=== PATIENT | male | born 1945 | race Caucasian/White ===

== ENCOUNTER 2020-01-13 00:56 | Emergency (ER) | payer MEDICARE, OTHER ==
--- NOTE | 2020-01-13 03:15 | EDM.PDOC ---
ED HPI GENERAL MEDICAL PROBLEM - General Chief Complaint: General Stated Complaint: rectal pain/constipation Time Seen by Provider: 01/13/20 01:16 Source of Information: Reports: Patient History Limitations: Reports: No Limitations - History of Present Illness INITIAL COMMENTS - FREE TEXT/NARRATIVE: Pt. presents to ER with complaints of constipation. Pt. states that he has been having trouble having a BM for the past several days. He states that he is having a lot of rectal pain and has been attempting to disimpact himself. He states that is stool is extremely hard. Pt. denies any history of severe constipation in the past. Denies any abdominal pain. He states that he is passing gas. Pt. states that he contact ask a nurse who advised him to come immediately to ER over concerns of bowel obstruction. Onset Date: 01/13/20 Location: Reports: Abdomen Quality: Reports: Pressure Rectal Pain Score (Numeric/FACES): 8 - Related Data Allergies Allergy/AdvReac Type Severity Reaction Status Date / Time codeine Allergy Shortness Verified 01/13/20 00:59 of Breath Penicillins Allergy Rash Verified 01/13/20 00:59 flour Allergy Shortness Uncoded 01/13/20 00:59 of Breath grass Allergy sneeze, Uncoded 01/13/20 00:59 cough, wheeze trees Allergy sneeze Uncoded 01/13/20 00:59 cough wheeze Home Meds: Home Meds Doxazosin [Doxazosin Mesylate] 4 mg PO DAILY 01/13/20 [History] Fluticasone Propionate 1 spray NASBOTH DAILY 01/13/20 [History] Losartan [Cozaar] 50 mg PO DAILY 01/13/20 [History] Past Medical History Cardiovascular History: Reports: Hypertension Social & Family History - Tobacco Use Tobacco Use Status *Q: Never Tobacco User ED ROS GENERAL - Review of Systems Review Of Systems: See Below Constitutional: Reports: No Symptoms. Denies: Fever, Chills, Malaise, Weakness HEENT: Reports: No Symptoms Respiratory: Reports: No Symptoms Cardiovascular: Reports: No Symptoms Endocrine: Reports: No Symptoms GI/Abdominal: Reports: Constipation. Denies: Black Stool, Bloody Stool, Diarrhea, Difficulty Swallowing, Distension, Hematemesis, Hematochezia, Melena : Reports: No Symptoms Musculoskeletal: Reports: No Symptoms Skin: Reports: No Symptoms Neurological: Reports: No Symptoms Psychiatric: Reports: No Symptoms Hematologic/Lymphatic: Reports: No Symptoms Immunologic: Reports: No Symptoms ED EXAM, GENERAL - Physical Exam Exam: See Below Exam Limited By: No Limitations General Appearance: Alert, WD/WN, No Apparent Distress GI/Abdominal: Normal Bowel Sounds, Soft, Non-Tender, No Organomegaly, No D istention, No Mass Rectal (Males) Exam: Fecal Impaction, Hemorrhoids, Rectal Fissure Course - Vital Signs Last Recorded V/S: Last Vital Signs Temp 36.6 C 01/13/20 00:59 Pulse 89 01/13/20 00:59 Resp 18 01/13/20 00:59 BP 159/99 H 01/13/20 00:59 Pulse Ox 97 01/13/20 00:59 - Re-Assessments/Exams Free Text/Narrative Re-Assessment/Exam: 01/13/20 03:17 Pt. was given a soap suds and a fleet enema with moderate result. Pt. still complains of rectal pain due to anal fissure but overall feels much improved. Departure - Departure Time of Disposition: 03:16 Disposition: Home, Self-Care 01 Clinical Impression: Constipation - Discharge Information Instructions: Anal Fissure, Adult, [id number], Hydrocortisone suppositories, Constipation, Adult Referrals: PCP,Unobtain [Primary Care Provider] - Forms: ED Department Discharge Additional Instructions: Mag citrate take half a bottle with a large glass of water tomorrow after you wake up. If you do not have a BM in a few hours drink the other half. Repeat with the second bottle until you are having normal BMs. Anusol suppository 1 suppository twice daily for the next week/until your rectal pain is improved. Start miralax 17mg daily to help soften stool. Increase your consumption of water. Recheck in clinic in 7-10 days, sooner if not improving, abdominal pain, etc. Sepsis Event Note (ED) - Evaluation Sepsis Screening Result: No Definite Risk - Focused Exam Vital Signs: Vital Signs Temp Pulse Resp BP Pulse Ox 01/13/20 00:59 36.6 C 89 18 159/99 H 97 - Problem List Review Problem List Initiated/Reviewed/Updated: Yes - Assessment/Plan Plan: Mag citrate take half a bottle with a large glass of water tomorrow after you wake up. If you do not have a BM in a few hours drink the other half. Repeat with the second bottle until you are having normal BMs. Anusol suppository 1 suppository twice daily for the next week/until your rectal pain is improved. Start miralax 17mg daily to help soften stool. Increase your consumption of water. Recheck in clinic in 7-10 days, sooner if not improving, abdominal pain, etc.
== END 2020-01-13 03:12 | disposition home or self-care (01) ==
LOC: VM.ED 00:56
DX: K59.00 Constipation, unspecified (principal); I10 Essential (primary) hypertension; Z88.5 Allergy status to narcotic agent; Z88.0 Allergy status to penicillin; Z91.018 Allergy to other foods; Z91.09 Other allergy status, other than to drugs and biological substances; Z79.899 Other long term (current) drug therapy
CPT/HCPCS: 99283; 99284

== ENCOUNTER 2020-01-13 06:56 | Emergency (ER) | payer MEDICARE, OTHER ==
--- NOTE | 2020-01-13 07:23 | EDM.PDOC ---
ED HPI GENERAL MEDICAL PROBLEM - General Time Seen by Provider: 01/13/20 07:23 Source of Information: Reports: Patient, RN, RN Notes Reviewed History Limitations: Reports: No Limitations - History of Present Illness INITIAL COMMENTS - FREE TEXT/NARRATIVE: Patient presents to ER with complaint of constipation, smears of stool, and inability to urinate. Patient was seen approximately 6 to 7 hours ago in the ER for enemas for rectal impaction and constipation. Patient states since that time he has been unable to urinate but a very small amount. Patient is very anxious and having pain. Patient refusing a catheter, as he states he has had urology issues in the past and they have had to take him to surgery to put a catheter in. 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 Patient does report that he masturbates frequently, and recently has not been able to climax. Patient states he did see urology in [place], but that urologist has since retired. States he would like to go to [place] for urology. Onset: Gradual Penis Pain Score (Numeric/FACES): 8 - Related Data Allergies Allergy/AdvReac Type Severity Reaction Status Date / Time codeine Allergy Shortness Verified 01/13/20 07:57 of Breath Penicillins Allergy Rash Verified 01/13/20 07:57 flour Allergy Shortness Uncoded 01/13/20 00:59 of Breath grass Allergy sneeze, Uncoded 01/13/20 00:59 cough, wheeze trees Allergy sneeze Uncoded 01/13/20 00:59 cough wheeze Home Meds: Home Meds Doxazosin [Doxazosin Mesylate] 4 mg PO DAILY 01/13/20 [History] Fluticasone Propionate 1 spray NASBOTH DAILY 01/13/20 [History] Losartan [Cozaar] 50 mg PO DAILY 01/13/20 [History] Past Medical History Cardiovascular History: Reports: Hypertension ED ROS GENERAL - Review of Systems Review Of Systems: Comprehensive ROS is negative, except as noted in HPI. ED EXAM, RENAL/ - Physical Exam Exam: See Below Exam Limited By: No Limitations General Appearance: Alert, WD/WN, Moderate Distress Eye Exam: Bilateral Eye: EOMI, Normal Inspection Ears: Normal External Exam, Hearing Grossly Normal Nose: Normal Inspection Throat/Mouth: Normal Inspection Head: Atraumatic, Normocephalic Neck: Normal Inspection, Full Range of Motion Back Exam: Normal Inspection, Full Range of Motion, NT Extremities: Normal Inspection, Normal Range of Motion, Non-Tender, Normal Capillary Refill, No Pedal Edema Neurological: Alert, Oriented, CN II-XII Intact, Normal Cognition, Normal Gait, Normal Reflexes, No Motor/Sensory Deficits Psychiatric: Anxious, Tearful Skin Exam: Warm, Dry, Intact, Normal Color, No Rash Lymphatic: No Adenopathy Course - Vital Signs Last Recorded V/S: Last Vital Signs Temp 97.6 F 01/13/20 07:00 Pulse 116 H 01/13/20 07:00 Resp 16 01/13/20 07:00 BP 182/115 H 01/13/20 07:00 Pulse Ox 98 01/13/20 07:00 - Orders/Labs/Meds Orders: Active Orders 24 hr Category Date Time Status Bladder Scan [RC] ASDIRECTED Care 01/13/20 07:31 Active Chavez Catheter Insertion [Insert Urinary Catheter] [OM. Care 01/13/20 07:15 Ordered PC] Q24H Urinary Catheter Assessment [RC] ASDIRECTED Care 01/13/20 07:02 Active URINALYSIS W/MICROSCOPIC [UA W/MICROSCOPIC] [URIN] Stat Lab 01/13/20 07:32 Ordered Labs: Laboratory Tests 01/13/20 01/13/20 01/13/20 Range/Units 07:28 07:28 07:28 WBC 8.1 (4.0-10.0) x10^3/uL RBC 5.07 (4.5-6.0) x10^6/uL Hgb 15.3 (14.0-18.0) g/dL Hct 45.0 (40.0-52.0) % MCV 88.8 (78.0-93.0) fL MCH 30.2 (26.0-32.0) pg MCHC 34.0 (32.0-36.0) g/dL RDW Coeff of Cuco 13.3 (10.0-15.0) % Plt Count 261 (130-400) x10^3/uL Neut % (Auto) 73.1 (50.0-80.0) % Lymph % (Auto) 17.7 L (25.0-50.0) % Barry % (Auto) 7.6 (2.0-11.0) % Eos % (Auto) 1.4 (0.0-4.0) % Baso % (Auto) 0.2 (0.2-1.2) % PT 11.7 (9.5-12.3) SEC INR 1.1 L (2.0-3.5) Sodium 138 (136-145) mmol/L Potassium 4.2 (3.5-5.1) mmol/L Chloride 103 (98-107) mmol/L Carbon Dioxide 27 (21-32) mmol/L Anion Gap 12.2 (10-20) mmol/L BUN 16 (7-18) mg/dL Creatinine 1.1 (0.70-1.30) mg/dL Est Cr Clr Drug Dosing TNP Estimated GFR (MDRD) > 60 Glucose 99 (74-106) mg/dL Calcium 8.9 (8.5-10.1) mg/dL Corrected Calcium 8.98 (8.5-10.1) mg/dL Total Bilirubin 1.3 H (0.2-1.0) mg/dL AST 23 (15-37) U/L ALT 23 (16-63) U/L Alkaline Phosphatase 88 (46-116) U/L C-Reactive Protein 1.0 H (<=0.9) mg/dL Total Protein 7.4 (6.4-8.2) g/dL Albumin 3.9 (3.4-5.0) g/dL Globulin 3.5 Albumin/Globulin Ratio 1.11 Meds: Medications Discontinued Medications Generic Name Dose Route Start Last Admin Trade Name Delaney PRN Reason Stop Dose Admin Fentanyl 50 mcg 01/13/20 07:30 01/13/20 07:41 Sublimaze IVPUSH 01/13/20 07:31 50 mcg ONETIME ONE Administration Fentanyl 100 mcg 01/13/20 08:31 01/13/20 08:36 Sublimaze IVPUSH 01/13/20 08:32 100 mcg ONETIME ONE Administration Fentanyl 50 mcg 01/13/20 08:33 Fentanyl IVPUSH 01/13/20 08:34 ONETIME ONE Lorazepam 0.5 mg 01/13/20 07:33 01/13/20 07:41 Ativan IVPUSH 01/13/20 07:34 0.5 mg ONETIME ONE Administration Tamsulosin HCl 0.4 mg 01/13/20 08:22 01/13/20 08:30 Flomax PO 01/13/20 08:23 0.4 mg ONETIME ONE Administration - Radiology Interpretation Free Text/Narrative:: X-ray abdomen flat and upright: Moderate to large amount of retained stool within the colon. No evidence of obstruction. See rad report Departure - Departure Time of Disposition: 08:44 Disposition: DC/Tfer to Acute Hospital 02 Condition: Fair Clinical Impression: Retention of urine Constipation Qualifiers: Constipation type: unspecified constipation type Qualified Code(s): K59.00 - Constipation, unspecified - Discharge Information *PRESCRIPTION DRUG MONITORING PROGRAM REVIEWED*: No *COPY OF PRESCRIPTION DRUG MONITORING REPORT IN PATIENT YOVANY: No Instructions: Constipation, Adult, [id number], Acute Urinary Retention, Male, [id number] Referrals: PCP,None [Primary Care Provider] - Forms: ED Department Discharge, Interfacility Transfer EMTALA Additional Instructions: Go directly to [facility] ([facility] facility on [address] Sepsis Event Note (ED) - Focused Exam Vital Signs: Vital Signs Temp Pulse Resp BP Pulse Ox 01/13/20 07:00 97.6 F 116 H 16 182/115 H 98 - My Orders Last 24 Hours: My Active Orders 01/13/20 07:31 Bladder Scan [RC] ASDIRECTED 01/13/20 07:32 URINALYSIS W/MICROSCOPIC [UA W/MICROSCOPIC] [URIN] Stat - Assessment/Plan Last 24 Hours: My Active Orders 01/13/20 07:31 Bladder Scan [RC] ASDIRECTED 01/13/20 07:32 URINALYSIS W/MICROSCOPIC [UA W/MICROSCOPIC] [URIN] Stat
[2020-01-13] MEDS ORDERED: fentaNYL 100 MCG/2 ML SDV IVPUSH ONE ×2 (07:30→08:31)
[2020-01-13] MEDS ORDERED: LORazepam 2 MG/ML SDV IVPUSH ONE (07:33)
[2020-01-13 08:11] LABS: ANION GAP 12.2 mmol/L (10-20); CHLORIDE,CL 103 mmol/L (98-107); SODIUM,NA 138 mmol/L (136-145)
[2020-01-13] MEDS ORDERED: Tamsulosin 0.4 MG Cap.ER PO ONE (08:22)
--- NOTE | 2020-01-13 08:32 | CR ---
[id number] RAD/RAD Abdomen 3V EXAM: RAD Abdomen 3V INDICATION: CONSTIPATION, UNABLE TO URINATE. COMPARISON: None. DISCUSSION: Cardiomediastinal silhouette is stable in size and contour. No infiltrate, effusion, pneumothorax, or edema. Unobstructed bowel gas pattern. No radiographically evident pneumoperitoneum. Moderate to large amount of retained stool within the colon. IMPRESSION: Moderate to large amount of retained stool within the colon. No evidence of obstruction. Geronimo Castaneda DO 01/13/20 0831 Thank you for allowing us to participate in the care of your patient.
[2020-01-13] MEDS ORDERED: fentaNYL 50 MCG/ML SDV IVPUSH ONE (08:33)
== END 2020-01-13 09:10 | disposition short-term general hospital (02) ==
LOC: VM.ED 06:56
DX: K59.00 Constipation, unspecified (principal); R33.9 Retention of urine, unspecified; I10 Essential (primary) hypertension; Z88.5 Allergy status to narcotic agent; Z88.0 Allergy status to penicillin; Z91.018 Allergy to other foods; Z91.09 Other allergy status, other than to drugs and biological substances; Z79.899 Other long term (current) drug therapy
CPT/HCPCS: 74022; 80053; 85025; 85610; 86140; 96374; 96375; 96376; 99284; 99284-25; A9270-GY; J2060; J3010

== ENCOUNTER 2021-01-27 16:50 | Emergency (ER) | payer MEDICARE, OTHER ==
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
[2021-01-27] MEDS ORDERED: Losartan 50 MG Tab PO ONE (17:19)
[2021-01-27] MEDS ORDERED: Acetaminophen 325 MG Tab PO ONE (17:19)
--- NOTE | 2021-01-27 17:36 | CT ---
[id number] CT/CT Head WO IV EXAM: CT Head WO IV CLINICAL DATA: HEADACHE LEFT ORBITAL PAIN COMPARISON: No previous similar exam is available for comparison. FINDINGS: There is no mass or mass effect. There is no hemorrhage or hydrocephalus. There are no extra-axial fluid collections. There are no sites of abnormal attenuation. IMPRESSION: NO PLAIN CT EVIDENCE OF ACUTE INTRACRANIAL PROCESS. Medhat Nascimento MD 01/27/21 2738 Thank you for allowing us to participate in the care of your patient.
[2021-01-27 17:44] LABS: CHLORIDE,CL 106 mmol/L (98-107); SODIUM,NA 144 mmol/L (136-145)
[2021-01-27 17:46] LABS: ANION GAP 15.8 mmol/L (5-15)
[2021-01-27] MEDS ORDERED: Labetalol 20 MG/4 ML Syringe IVPUSH ONE (18:40)
[2021-01-27] MEDS ORDERED: Ondansetron 4 MG/2 ML SDV IVPUSH ONE (18:52)
[2021-01-27] MEDS ORDERED: Morphine 2 MG/ML SYRINGE ONE (18:55)
[2021-01-27] MEDS ORDERED: Ondansetron 4 MG/2 ML SDV ONE (18:56)
[2021-01-27] MEDS ORDERED: Labetalol 100 MG in Sodium Chloride 0.9% 100 ML IV SCH (19:15)
== END 2021-01-27 19:23 | disposition short-term general hospital (02) ==
LOC: VM.ED 16:50
DX: R51.9 Headache, unspecified (principal); R29.818 Other symptoms and signs involving the nervous system; I10 Essential (primary) hypertension; Z88.5 Allergy status to narcotic agent; Z88.0 Allergy status to penicillin; Z91.09 Other allergy status, other than to drugs and biological substances; Z79.899 Other long term (current) drug therapy
CPT/HCPCS: 36415; 70450; 80048; 84484; 85025; 85610; 85652; 93005; 96374; 96375; 99284; 99285-25; A9270-GY; J2270; J2405; J3490

== ENCOUNTER 2022-02-07 11:51 | Emergency (ER) | payer MEDICARE, OTHER | END 2022-02-07 13:48 | disposition home or self-care (01) | LOC: VM.ED 11:51 | DX: K59.00 Constipation, unspecified (principal); I10 Essential (primary) hypertension; Z88.5 Allergy status to narcotic agent; Z88.0 Allergy status to penicillin; Z91.048 Other nonmedicinal substance allergy status; Z79.899 Other long term (current) drug therapy | CPT/HCPCS: 74019; 99283; 99284 ==

== ENCOUNTER 2022-09-18 14:11 | Emergency (ER) | payer MEDICARE, OTHER ==
[2022-09-18] MEDS ORDERED: Sodium Chloride 0.9% 10 ML Syringe FLUSH PRN (14:23)
[2022-09-18 14:44] LABS: BASOPHILS ABSOLUTE AUTO 0.1 x10^3/uL (0.0-0.2); BASOPHILS PERCENT AUTO 0.5 % (0.2-1.2); EOSINOPHILS ABSOLUTE AUTO 0.8 x10^3/uL (0.0-0.5); EOSINOPHILS PERCENT AUTO 8.5 % (0.0-4.0); HEMATOCRIT 37.6 % (40.0-52.0); IMMATURE GRAN ABSOLUTE AUTO 0.19 x10^3/uL (0.00-0.07); LYMPHOCYTES PERCENT AUTO 10.7 % (25.0-50.0); MEAN CORPUSCULAR HEMOGLOBIN 31.3 pg (26.0-32.0); MEAN CORPUSCULAR HGB CONC 34.6 g/dL (32.0-36.0); MEAN CORPUSCULAR VOLUME 90.4 fL (78.0-93.0); MONOCYTES ABSOLUTE AUTO 0.8 x10^3/uL (0.0-0.8); MONOCYTES PERCENT AUTO 8.2 % (2.0-11.0); NEUTROPHILS ABSOLUTE AUTO 6.7 x10^3/uL (1.8-7.7); NEUTROPHILS PERCENT AUTO 70.1 % (50.0-80.0); PLATELET COUNT,PLT 330 x10^3/uL (130-400); RED BLOOD CELL COUNT 4.16 x10^6/uL (4.5-6.0); WHITE BLOOD CELL COUNT,WBC 9.6 x10^3/uL (4.0-10.0)
[2022-09-18 14:57] LABS: INR 1.1 (2.0-3.5); PROTHROMBIN TIME 12.2 SEC (9.5-12.2); PTT,PARTIAL THROMBOPLSTIN TIME 30.8 SEC (23.6-33.6)
[2022-09-18 14:59] LABS: A/G RATIO 1.19; ALANINE AMINOTRANSFERASE,ALT 22 U/L (16-63); ALBUMIN 3.7 g/dL (3.4-5.0); ALKALINE PHOSPHATASE 98 U/L (46-116); ASPARTATE AMNIOTRANSFERASE,AST 32 U/L (15-37); BLOOD UREA NITROGEN,BUN 25 mg/dL (7-18); C-REACTIVE PROTEIN 2.08 mg/dL (<=0.30); CALCIUM 9.2 mg/dL (8.5-10.1); CARBON DIOXIDE,CO2 28 mmol/L (21-32); CHLORIDE,CL 100 mmol/L (98-107); CREATININE 1.2 mg/dL (0.70-1.30); GLUCOSE RANDOM 97 mg/dL (70-99); MAGNESIUM 1.9 mg/dL (1.8-2.4); PROTEIN TOTAL,TP 6.8 g/dL (6.4-8.2); SODIUM,NA 138 mmol/L (136-145)
[2022-09-18 15:00] LABS: ESTIMATED GFR 63 mL/min (>=60)
[2022-09-18 15:02] LABS: LACTIC ACID 1.7 mmol/L (0.4-2.0)
[2022-09-18] MEDS ORDERED: predniSONE 20 MG Tab PO ONE (15:11)
[2022-09-19] MEDS ORDERED: predniSONE 20 MG Tab PO ONE (15:11)
== END 2022-09-18 15:31 | disposition home or self-care (01) ==
LOC: VM.ED 14:11
DX: L25.9 Unspecified contact dermatitis, unspecified cause (principal); I10 Essential (primary) hypertension; E66.9 Obesity, unspecified; Z88.0 Allergy status to penicillin; Z88.5 Allergy status to narcotic agent; Z88.8 Allergy status to other drugs, medicaments and biological substances; Z91.030 Bee allergy status; Z91.09 Other allergy status, other than to drugs and biological substances; Z79.899 Other long term (current) drug therapy
CPT/HCPCS: 36415; 80053; 83605; 83735; 85025; 85610; 85730; 86140; 99283; J7512

== ENCOUNTER 2022-12-22 12:23 | Day surgery (SDC) | payer MEDICARE, OTHER ==
[2022-12-22] MEDS ORDERED: Propofol 200 MG/20 ML SDV ONE ×2 (12:33→13:42)
[2022-12-22] MEDS ORDERED: fentaNYL 100 MCG/2 ML SDV ONE (12:33)
[2022-12-22] MEDS: Lactated Ringers 1,000 ML IV SCH (12:40)
== END 2022-12-22 15:36 | disposition home or self-care (01) ==
LOC: VM.SDS 12:23
PROVIDERS: ATTEND Family Medicine
DX: D12.6 Benign neoplasm of colon, unspecified (principal); K63.89 Other specified diseases of intestine; I10 Essential (primary) hypertension; F43.10 Post-traumatic stress disorder, unspecified; F32.A Depression, unspecified; N40.1 Benign prostatic hyperplasia with lower urinary tract symptoms; R35.0 Frequency of micturition; G43.909 Migraine, unspecified, not intractable, without status migrainosus; Z79.899 Other long term (current) drug therapy; Z88.0 Allergy status to penicillin; Z88.5 Allergy status to narcotic agent
CPT/HCPCS: 00811; 88305; J2704; J3010; J7120

== ENCOUNTER 2023-06-18 21:31 | Emergency (ER) | payer MEDICARE, OTHER ==
[2023-06-18 22:28] LABS: BASOPHILS ABSOLUTE AUTO 0.1 x10^3/uL (0.0-0.2); BASOPHILS PERCENT AUTO 0.7 % (0.2-1.2); EOSINOPHILS ABSOLUTE AUTO 0.4 x10^3/uL (0.0-0.5); EOSINOPHILS PERCENT AUTO 4.9 % (0.0-4.0); HEMATOCRIT 47.3 % (40.0-52.0); HEMOGLOBIN 16.1 g/dL (14.0-18.0); IMMATURE GRAN ABSOLUTE AUTO 0.04 x10^3/uL (0.00-0.07); LYMPHOCYTES ABSOLUTE AUTO 1.6 x10^3/uL (1.0-4.8); LYMPHOCYTES PERCENT AUTO 22.1 % (25.0-50.0); MEAN CORPUSCULAR VOLUME 91.1 fL (78.0-93.0); MONOCYTES ABSOLUTE AUTO 0.6 x10^3/uL (0.0-0.8); NEUTROPHILS ABSOLUTE AUTO 4.7 x10^3/uL (1.8-7.7); NEUTROPHILS PERCENT AUTO 63.8 % (50.0-80.0); PLATELET COUNT,PLT 270 x10^3/uL (130-400); RED BLOOD CELL COUNT 5.19 x10^6/uL (4.5-6.0); WHITE BLOOD CELL COUNT,WBC 7.4 x10^3/uL (4.0-10.0)
[2023-06-18 22:34] LABS: AMPHETAMINES SCREEN, URINE NEGATIVE (NEGATIVE); BARBITURATE SCREEN,URINE NEGATIVE (NEGATIVE); BENZODIAZEPINES SCREEN,URINE NEGATIVE (NEGATIVE); COCAINE METABOLITES,URINE NEGATIVE (NEGATIVE); METHADONE SCREEN, URINE NEGATIVE (NEGATIVE); METHAMPHETAMINE SCREEN, URINE NEGATIVE (NEGATIVE); OXYCODONE SCREEN,URINE NEGATIVE (NEGATIVE); PCP SCREEN,URINE NEGATIVE (NEGATIVE); THC SCREEN,URINE 50 NG/ML NEGATIVE (NEGATIVE)
[2023-06-18 22:35] LABS: BUPRENORPHINE SCREEN,URINE NEGATIVE (NEGATIVE)
[2023-06-18 22:57] LABS: A/G RATIO 1.21; ACETAMINOPHEN 0 ug/ml (10-30); ALANINE AMINOTRANSFERASE,ALT 23 U/L (16-63); ALBUMIN 4.1 g/dL (3.4-5.0); ALKALINE PHOSPHATASE 106 U/L (46-116); ANION GAP 17.6 mmol/L (5-15); ASPARTATE AMNIOTRANSFERASE,AST 20 U/L (15-37); BILIRUBIN TOTAL 0.3 mg/dL (0.2-1.0); BLOOD UREA NITROGEN,BUN 18 mg/dL (7-18); CALCIUM 9.1 mg/dL (8.5-10.1); CARBON DIOXIDE,CO2 24 mmol/L (21-32); CHLORIDE,CL 106 mmol/L (98-107); CREATININE 1.1 mg/dL (0.70-1.30); ESTIMATED GFR 69 mL/min (>=60); ETHANOL BLOOD MEDICAL 132 mg/dL (0-3); GLUCOSE RANDOM 102 mg/dL (70-99); POTASSIUM,K 3.6 mmol/L (3.5-5.1); PROTEIN TOTAL,TP 7.5 g/dL (6.4-8.2); SODIUM,NA 144 mmol/L (136-145); TSH ULTRASENSITIVE 1.591 uIU/mL (0.358-3.74)
== END 2023-06-18 23:21 ==
LOC: VM.ED 21:31
DX: F10.120 Alcohol abuse with intoxication, uncomplicated (principal); I10 Essential (primary) hypertension; Z91.030 Bee allergy status; Z88.5 Allergy status to narcotic agent; Z88.0 Allergy status to penicillin; Z88.6 Allergy status to analgesic agent; Z91.018 Allergy to other foods; Z79.899 Other long term (current) drug therapy; Y90.6 Blood alcohol level of 120-199 mg/100 ml
CPT/HCPCS: 36415; 80053; 80143; 80179; 80305-QW; 80307; 84443; 85025; 99284

== ENCOUNTER 2024-06-27 11:25 | Day surgery (SDC) | payer MEDICARE, OTHER ==
[2024-06-27] MEDS: Lactated Ringers 1,000 ML IV SCH (11:42)
[2024-06-27] MEDS ORDERED: Propofol 200 MG/20 ML SDV ONE (12:17)
[2024-06-27] MEDS ORDERED: fentaNYL 100 MCG/2 ML SDV ONE (12:17)
[2024-06-27 14:14] VITALS: BP 140/85; PULSE 71
[2024-08-15] MEDS ORDERED: Lactated Ringers 1,000 ML IV SCH (07:00)
== END 2024-06-27 15:08 | disposition home or self-care (01) ==
LOC: VM.SDS 11:25
PROVIDERS: ATTEND Family Medicine
DX: K29.50 Unspecified chronic gastritis without bleeding (principal); K31.89 Other diseases of stomach and duodenum; I10 Essential (primary) hypertension; E66.9 Obesity, unspecified; Z88.8 Allergy status to other drugs, medicaments and biological substances; Z88.0 Allergy status to penicillin; Z91.09 Other allergy status, other than to drugs and biological substances; Z91.030 Bee allergy status; Z79.899 Other long term (current) drug therapy
CPT/HCPCS: 43239; J2704; J3010; J7120; 00731; 88305; 99100